=== PATIENT | male | born 1935 | race African-American/Black ===

== ENCOUNTER 2019-10-13 20:20 | Emergency (ER) | payer MEDICARE ==
[~2019-10-13] VITALS: Ht 188 cm; Wt 81.8 kg
[~2019-10-13 20:20] MED LIST: ASPI-728 PO; ATOR20TA86 PO; FISH1CAP8 PO; MULT-1259 PO; TAMS-13 PO; VITA-300 PO
[2019-10-13] MEDS ORDERED: METO25 PO (20:28)
[2019-10-13] MEDS ORDERED: CLOP75TA3 PO (20:28)
[2019-10-13] MEDS ORDERED: MULT-1081 PO (20:28)
[2019-10-13] MEDS ORDERED: OLME20TA10 PO (20:28)
[2019-10-13 21:47] VITALS: BP 130/68
== END 2019-10-13 21:56 | disposition home or self-care (01) ==
LOC: EMS 20:21
DX: R33.9 Retention of urine, unspecified (principal); I10 Essential (primary) hypertension; Z86.73 Personal history of transient ischemic attack (TIA), and cerebral infarction without residual deficits; Z79.82 Long term (current) use of aspirin
CPT/HCPCS: 51702; Z7502